=== PATIENT | male | born 2000 | race Two or more races ===

== ENCOUNTER 2021-01-19 10:56 | Emergency (ER) | payer MEDICAID, OTHER ==
[~2021-01-19] VITALS: Ht 175.3 cm; Wt 103.0 kg
[2021-01-19 11:01] VITALS: BP 149/83
[2021-01-19] MEDS ORDERED: BACITRACIN TOP OINT 1 UD PKG TOP ONE (12:15)
== END 2021-01-19 12:45 | disposition home or self-care (01) ==
LOC: ER 10:56
DX: S00.01XA Abrasion of scalp, initial encounter (principal); S80.212A Abrasion, left knee, initial encounter; S80.211A Abrasion, right knee, initial encounter; S40.812A Abrasion of left upper arm, initial encounter; S40.811A Abrasion of right upper arm, initial encounter; S09.8XXA Other specified injuries of head, initial encounter; V86.56XA Driver of dirt bike or motor/cross bike injured in nontraffic accident, initial encounter; Y93.55 Activity, bike riding; Y92.488 Other paved roadways as the place of occurrence of the external cause; Y99.8 Other external cause status